=== PATIENT | female | born 1985 | race Caucasian/White ===

== ENCOUNTER 2021-12-20 16:29 | Outpatient (CLI) | payer BC | END 2021-12-20 16:30 | disposition home or self-care (01) | LOC: CSHLAB 16:29 | PROVIDERS: ATTEND Surgery | DX: Z20.822 Contact with and (suspected) exposure to COVID-19 (principal); Z53.9 Procedure and treatment not carried out, unspecified reason | CPT/HCPCS: 87811 ==

== ENCOUNTER 2021-12-24 06:01 | Day surgery (SDC) | payer BC ==
[2021-12-20 14:13] VITALS: BMI 43.0
[2021-12-24] MEDS ORDERED: Bupivacaine 0.25% HCL 30 ML VIAL ONE (06:42)
[2021-12-24] MEDS ORDERED: EPINEPHrine 1 MG/ML AMP ONE (06:42)
[2021-12-24] MEDS ORDERED: Lidocaine 1% MPF 2 ML VIAL ONE (07:31)
[2021-12-24] MEDS ORDERED: CEFAZOLIN 2 GM VIAL ONE (08:10)
[2021-12-24] MEDS ORDERED: SUGAMMADEX SODIUM 200 MG/2 ML VIAL ONE (08:11)
[2021-12-24] MEDS ORDERED: Famotidine/PF 20 mg/2ml Vial ONE (08:11)
[2021-12-24] MEDS ORDERED: PROPOFOL 20 ML ONE (08:14)
[2021-12-24] MEDS ORDERED: Ketorolac Tromethamine 30 MG/ML VIAL ONE (08:15)
[2021-12-24] MEDS ORDERED: Lidocaine 2% PF 5 ML VIAL ONE (08:15)
[2021-12-24] MEDS ORDERED: Fentanyl 100 MCG/2 ML VIAL ONE ×2 (08:15→09:03)
[2021-12-24] MEDS ORDERED: Metoclopramide HCl 10 MG/2 ML VIAL ONE (08:16)
[2021-12-24] MEDS ORDERED: Dexamethasone 4 mg/ml Vial ONE (08:16)
[2021-12-24] MEDS ORDERED: Ondansetron PF 4 MG/2 ML Vial ONE ×2 (08:16→09:04)
== END 2021-12-24 10:25 | disposition home or self-care (01) ==
LOC: CSHSDC 06:01
PROVIDERS: ATTEND Surgery
PROC: 0FT44ZZ Resection of Gallbladder, Percutaneous Endoscopic Approach (ICD-10-PCS; principal; 2021-12-24)
DX: K80.10 Calculus of gallbladder with chronic cholecystitis without obstruction (principal); K66.0 Peritoneal adhesions (postprocedural) (postinfection); K21.9 Gastro-esophageal reflux disease without esophagitis; E66.9 Obesity, unspecified; Z68.41 Body mass index [BMI] 40.0-44.9, adult; F32.A Depression, unspecified; F41.9 Anxiety disorder, unspecified; Z20.822 Contact with and (suspected) exposure to COVID-19; Z79.899 Other long term (current) drug therapy; Z88.7 Allergy status to serum and vaccine
CPT/HCPCS: 87811; 88304; C1713; J0171; J0690; J1100; J1885; J2001; J2405; J2704; J2765; J3010; S0020; S0028